=== PATIENT | male | born 1960 | race Caucasian/White ===

== ENCOUNTER → 2020-05-04 15:20 | Outpatient (BNVA) | payer BC, SELFPAY | PROVIDERS: PCP Physician Assistant Medical; Visit Provider Surgery | DX: Z01.812 Encounter for preprocedural laboratory examination (principal); Z20.828 Contact with and (suspected) exposure to other viral communicable diseases | CPT/HCPCS: 87635 ==

== ENCOUNTER 2020-05-10 07:01 | Day surgery (SDC) | payer BC, SELFPAY ==
[2020-05-06 12:52] VITALS: BMI 43.0
[2020-05-10 07:19] VITALS: BP 175/94; PULSE 79; RESP 18; TEMP 36.5; O2SAT 96
--- NOTE | 2020-05-10 07:26 | W.PM.OPSFHP ---
Same Day Surgery H&P Indication for Procedure/HPI DATE OF PROCEDURE: May 10, 2020 CHIEF COMPLAINT/INDICATIONFOR SURGICAL PROCEDURE: screening colonoscopy PREOP DIAGNOSIS: screening colonoscopy PLANNED PROCEDRUE: Operation Date: 05/10/20 08:30 Proposed Procedures p Colonoscopy 59360 z12.11(Not Applicable) - aLst Garcia MD Medications/Allergies* Home Medications Medication Instructions Recorded Confirmed Type atorvastatin 20 mg tablet 20 mg PO DAILY 04/28/20 05/06/20 History diltiazem HCl 360 mg 360 mg PO DAILY 04/28/20 05/06/20 History capsule,extended release 24 hr losartan 100 mg tablet 100 mg PO DAILY 04/28/20 05/06/20 History omeprazole 20 mg capsule,delayed 20 mg PO DAILY 04/28/20 05/06/20 History release tamsulosin 0.4 mg capsule 0.4 mg PO DAILY 04/28/20 05/06/20 History trazodone 50 mg tablet 50 mg PO DAILY 04/28/20 05/06/20 History Allergies/Adverse Reactions Allergy/AdvReac Type Severity Reaction Status Date / Time No Known Allergies Allergy Verified 04/28/20 14:42 Pertinent Exam Findings alert, oriented x 3 and regular rate & rhythm Recommendations Surgery/Procedure today Coding Level of Care Code Acute [employer]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
[2020-05-10] MEDS: sodium chloride 0.9% 1,000 ML 30 ML IV (07:35)
--- NOTE | 2020-05-10 07:35 | ANES.PREANE2 ---
Pre-Anesthetic Assessment Pre-Anesthetic Assessment: Height/Weight: Height 1.78 m Weight 136.078 kg Temp Pulse Resp BP Pulse Ox 97.7 F 79 18 175/94 96 05/10/20 07:19 05/10/20 07:19 05/10/20 07:19 05/10/20 07:19 05/10/20 07:19 Preop Diagnosis: screening colonoscopy Proposed Procedure: Operation Date: 05/10/20 08:30 Proposed Procedures p Colonoscopy 21103 z12.11(Not Applicable) - Last Garcia MD Last intake: Intake Last Liquid Date 05/09/20 Last Liquid Time 23:45 Last Solid Date 05/09/20 Last Solid Time 02:30 Social: Social History: No alcohol and No tobacco Exam: Pre-Anes Outpt Exam: alert, oriented x 3, clear to auscultation bilaterally and regular rate & rhythm Airway: Submandibular: WNL Cervical ROM: WNL MP: 3 Dentition: Partials (lower) and Other (teeth ok) History/ROS: No significant history except as noted Pulmonary: Pulmonary: None reported CV/HEM: CV/HEM: HTN : : None reported Hepatic: Hepatic: None reported GI: GI: GERD (controlled) Metabolic: Metabolic: Hyperlipidemia and Morbid obesity Musc/skel: Musc/skel: OA/DJD Neuropsych: Neuropsych: None reported Anesthetic Plan: ASA status: 2 Anesthesia: Anesthesia Evaluation and MAC Risk of > 500 ml blood loss (7ml/kg in children): No Data Anesthesia Cardiac Studies: No Data to Display
[2020-05-10 08:41] VITALS: BP 110/73; PULSE 67; RESP 16; TEMP 36.3; O2SAT 93
[2020-05-10 08:56] VITALS: BP 124/76; PULSE 64; RESP 18; TEMP 36.4; O2SAT 94
== END 2020-05-10 09:22 | disposition home or self-care (01) ==
PROVIDERS: PCP Physician Assistant Medical; Visit Provider Surgery
PROC: 0DJD8ZZ Inspection of Lower Intestinal Tract, Via Natural or Artificial Opening Endoscopic (ICD-10-PCS; CPT 45378; principal; 2020-05-10 08:30)
DX: Z12.11 Encounter for screening for malignant neoplasm of colon (principal); D12.2 Benign neoplasm of ascending colon; D12.4 Benign neoplasm of descending colon; K57.30 Diverticulosis of large intestine without perforation or abscess without bleeding; K64.8 Other hemorrhoids; I10 Essential (primary) hypertension; K21.9 Gastro-esophageal reflux disease without esophagitis; E78.5 Hyperlipidemia, unspecified; E66.01 Morbid (severe) obesity due to excess calories; Z68.41 Body mass index [BMI] 40.0-44.9, adult; M19.90 Unspecified osteoarthritis, unspecified site
CPT/HCPCS: 12345; 45385; 88305; J2704; J7030

== ENCOUNTER → 2022-11-19 06:56 | Outpatient (BNVA) | payer OTHER, SELFPAY | PROVIDERS: PCP Physician Assistant Medical; Referring Provider Nurse Practitioner Family; Visit Provider Student in an Organized Health Care Education/Training Program | DX: M65.321 Trigger finger, right index finger (principal) | CPT/HCPCS: 73130 ==

== ENCOUNTER → 2024-03-31 14:01 | Outpatient (BNVA) | payer MEDICARE, SELFPAY | PROVIDERS: PCP Physician Assistant Medical; Visit Provider Internal Medicine Cardiovascular Disease | DX: R07.9 Chest pain, unspecified (principal) | CPT/HCPCS: 93005 ==

== ENCOUNTER → 2024-08-27 14:38 | Outpatient (BNVA) | payer MEDICARE, SELFPAY | PROVIDERS: PCP Physician Assistant Medical; Visit Provider Nurse Practitioner Family | DX: L82.1 Other seborrheic keratosis (principal); L73.8 Other specified follicular disorders; L91.8 Other hypertrophic disorders of the skin; L53.8 Other specified erythematous conditions; D48.5 Neoplasm of uncertain behavior of skin; L57.0 Actinic keratosis | CPT/HCPCS: 11102; 17000; 17110; 99213 ==

== ENCOUNTER → 2024-12-31 13:52 | Outpatient (BNVA) | payer MEDICARE, SELFPAY | PROVIDERS: PCP Physician Assistant Medical; Visit Provider Nurse Practitioner Family | DX: L30.4 Erythema intertrigo (principal); L81.4 Other melanin hyperpigmentation | CPT/HCPCS: 99213 ==

== ENCOUNTER → 2025-04-19 15:29 | Outpatient (BNVA) | payer MEDICARE, SELFPAY | PROVIDERS: PCP Family Medicine; Visit Provider Internal Medicine Cardiovascular Disease | DX: I10 Essential (primary) hypertension (principal); Z87.898 Personal history of other specified conditions; E78.5 Hyperlipidemia, unspecified; E66.3 Overweight; Z68.42 Body mass index [BMI] 45.0-49.9, adult | CPT/HCPCS: 99214 ==